=== PATIENT | male | born 1940 | race Caucasian/White ===

== ENCOUNTER 2020-09-07 19:50 | Emergency (ER) | payer MEDICARE, OTHER, SELFPAY | END 2020-09-07 20:25 | disposition left against medical advice (07) | PROVIDERS: Emergency Provider Emergency Medicine; Family Provider Family Medicine; PCP Family Medicine ==

== ENCOUNTER 2020-09-08 12:00 | Emergency (ER) | payer MEDICARE, OTHER, SELFPAY ==
[2020-09-08 12:13] VITALS: BP 103/69; PULSE 72; RESP 18; TEMP 36.9; O2SAT 97
--- NOTE | 2020-09-08 15:21 | PC.NURSE ---
reports that pt is unable to swallow food without choking. states that he chokes up thick fluid and any food that he eats. she is afraid that she will need to do cpr on him when he chokes.
--- NOTE | 2020-09-08 15:51 | ED.NAVMDI ---
HPI - Nausea/Vomiting/Diarrhea General Chief complaint: Nausea/Vomiting/Diarrhea Stated complaint: vomiting/ diarrhea Time Seen by Provider: 09/08/20 15:10 Source: patient Mode of arrival: EMS Limitations: no limitations History of Present Illness HPI Narrative: Patient is a 80-year-old male with history of atrial fibrillation on Coumadin presenting with he it is but vomiting. He said it started while eating lunch it he 3 days ago they can not remember exactly what he was eating. Unclear if it got stuck. However since then every time he eats or drinks something he coughs/vomits up lots of clear spit like fluid. He says it is quite a large amount. He has no abdominal pain. He is not dizzy or lightheaded. He denies any chest pain palpitation shortness of breath. He had is not having any productive cough or fever. No prior history of dysphagia. Related Data Home Medications Medication Instructions Recorded Confirmed multivitamin 1 cap PO DAILY 05/13/18 06/16/20 lisinopril 20 2 tab PO DAILY tab 12/04/19 06/16/20 mg-hydrochlorothiazide 12.5 mg tablet trazodone 50 mg tablet 100 mg PO BEDTIME PRN tab 12/04/19 06/16/20 warfarin 5 mg tablet 5 mg PO 5XW tab 12/04/19 06/16/20 warfarin 6 mg tablet 6 mg PO 2XW tab 12/04/19 06/16/20 Allergies Allergy/AdvReac Type Severity Reaction Status Date / Time No Known Drug Allergies Allergy Unverified 11/13/18 11:12 Review of Systems Review of Systems Narrative: GENERAL: Denies chills, fatigue, malaise, fever, sweats, travel HEENT: Denies sinus pain, ear pain, sore throat, difficulty swallowing, neck pain RESPIRATORY: Denies dyspnea, cough, wheezing, hemoptysis, sputum. CARDIOVASCULAR: Denies chest pain, palpitations, orthopnea, edema GASTROINTESTINAL: See HPI : Denies dysuria, frequency, incontinence, hematuria, urinary retention, flank pain. MUSCULOSKELETAL: Denies weakness, joint pain, or bony pain SKIN: No rash, no erythema, no pruritus NEUROLOGIC: Denies weakness, dizziness, headache, numbness, change in speech, confusion PSYCHIATRIC: No concerning psychosocial issues. 12 point review of systems is negative except for those stated above and HPI Patient History Medical History Atrial fibrillation with RVR Blindness of left eye Complex sleep apnea syndrome (~08/2009) Dry eye syndrome, bilateral Excessive daytime sleepiness (~01/2010) Hypertension Obesity (BMI 30-39.9) Obstructive sleep apnea of adult (~06/2009) Recurrent sinusitis Social History (Updated 05/15/18 @ 18:07 by PO Barrera) marital status: details: christina Appiah, lives in [place] household members: spouse lives independently: No caregiver/support person: Yes (Bijal identifies herself as his caregiver) housing: house education level: college Smoking Status: Former smoker alcohol intake: current substance use type: does not use Smoking Status: Former smoker tobacco type: cigarettes and smokeless tobacco Substance Use Type: does not use Exam Initial Vital Signs Initial Vital Signs: Vital Signs Temperature 98.5 F 09/08/20 12:13 Pulse Rate 72 09/08/20 12:13 Respiratory Rate 18 09/08/20 12:13 Blood Pressure 103/69 09/08/20 12:13 Pulse Oximetry 97 09/08/20 12:13 GENERAL: Alert pleasant 80-year-old male no acute distress HEENT: Head atraumatic,EOMI, pupils reactive, face symmetric, moist mucous membranes CARDIOVASCULAR: Regular rate and rhythm without murmurs, rubs or gallops. RESPIRATORY: Breath sounds equal bilaterally, no wheezes rales or rhonchi. No respiratory distress ABDOMEN: Soft, nontender. Normoactive bowel sounds all 4 quadrants. No guarding or rebound. RECTAL: Hemoccult negative no gross blood : No CVA tenderness EXTREMITIES: Normal range of motion, no clubbing or edema. Neurovascularly intact NEUROLOGICAL: Alert and oriented x4.Normal gait and speech. SKIN: Warm, dry, no laceration, no petechiae, no rashes or lesions. Course Orders Ordered: ED Orders 09/08/20 15:59 XR chest 1V Stat EKG-12 Lead Stat 09/08/20 16:40 Complete Blood Count AUTO DIFF Stat Comprehensive Metabolic Panel Stat Lipase Stat Partial Thromboplastin Time Stat Prothrombin Time INR Stat Troponin & CK Cardiac Panel Stat Discontinued Medications Glucagon (Glucagon,Human Recombinant 1 Mg/Ml Vial) 1 mg IV NOW ONE Stop: 09/08/20 16:00 Last Admin: 09/08/20 16:48 Dose: 1 mg Documented by: YARIEL Sodium Chloride (Normal Saline 0.9%) 1,000 mls @ 150 mls/hr IV CONT ELMA Last Infusion: 09/08/20 19:38 Dose: 0 mls/hr Documented by: Admin: 09/08/20 16:45 Dose: 150 mls/hr Documented by: YARIEL Pantoprazole Sodium (Pantoprazole 40 Mg Vial) 40 mg IV NOW ONE Stop: 09/08/20 16:00 Last Admin: 09/08/20 16:45 Dose: 40 mg Documented by: YARIEL Vital Signs Vital signs: Vital Signs - 8 hr 09/08/20 18:17 Pulse Rate 78 Blood Pressure 135/77 Pulse Oximetry 97 MDM - Nausea/Vomiting/Diarrhea Lab Data Result diagrams: 09/08/20 16:40 09/08/20 16:40 Labs: Lab Results 09/08/20 09/08/20 09/08/20 Range/Units 16:40 16:40 16:40 WBC 9.9 (4.5-11.0) X10^3/uL RBC 3.18 L (4.5-5.9) X10^6/uL Hgb 8.3 L (13.5-17.5) g/dL Hct 25.7 L (41-53) % MCV 80.7 (80-100) fL MCH 26.0 (26-34) PG MCHC 32.2 (30-36) % RDW 17.7 H (11.6-14.8) % Plt Count 345 (150-400) X10^3/uL Neut % (Auto) 63.8 (50-75) % Lymph % (Auto) 24.3 L (25-40) % [place] % (Auto) 9.8 (3-14) % Eos % (Auto) 0.9 L (2-4) % Baso % (Auto) 1.2 (0-2) % Neut # (Auto) 6300 (2465-1586) /uL Lymph # (Auto) 2400 (3399-1598) /uL [place] # (Auto) 1000 H (0-900) /uL Eos # (Auto) 100 (0-450) /uL Baso # (Auto) 100 (0-100) /uL PT 42.5 H (10.1-12.7) SECONDS INR 3.6 H (0.9-1.3) APTT 50 H (26.4-36.2) SECONDS Sodium 134 L (137-145) mmol/L Potassium 4.3 (3.4-5.1) mmol/L Chloride 98 (98-107) mmol/L Carbon Dioxide 27 (22-32) mmol/L BUN 29 H (9-20) mg/dL Creatinine 1.42 H (0.66-1.25) mg/dL Estimated GFR 47.7 L (>60) mL/min BUN/Creatinine Ratio 20.4 (6-22) Glucose 121 H (80-110) mg/dL Calcium 9.3 (8.4-10.2) mg/dL Total Bilirubin 0.3 (0.2-1.3) mg/dL AST 23 (17-59) IU/L ALT 20 (<50) IU/L Alkaline Phosphatase 60 (38-126) U/L Total Creatine Kinase 60 (55-170) U/L CK-MB (CK-2) TNP CK-MB (CK-2) Rel Index TNP Troponin I < 0.012 (0.01-0.034) ng/mL Total Protein 7.1 (6.3-8.2) g/dL Albumin 4.2 (3.5-5.0) g/dL Globulin 2.9 (1.7-4.1) g/dL Albumin/Globulin Ratio 1.4 (1.0-2.8) Lipase 220 (23-300) U/L Imaging Data Chest x-ray: Radiologist's Impression: PROCEDURE: XR CHEST 1V INDICATIONS: feels something is stuck TECHNIQUE: One view of the chest was acquired. COMPARISON: [facility], , CHEST 2 VIEW, 11/11/2013, 9:24. FINDINGS: Surgical changes and devices: None. Lungs and pleura: Lungs are symmetrically aerated and clear. No pleural effusions or pneumothorax. Mediastinum: Mild, stable cardiomegaly. No significant central venous congestion. Bones and chest wall: No suspicious bony lesions. Right AC joint degeneration. Overlying soft tissues appear unremarkable. IMPRESSION: 1. No acute process. 2. Mild, stable cardiomegaly. Dictated by: Judy Calderón M.D. on 09/08/2020 at 17:07 ECG Data Interpretation: Atrial fibrillation rate [address] changes--n o prior to compare MDM Narrative Medical decision making narrative: Patient sounds as though he is having like some dysplasia of the. He currently is able to swallow his own spit and does not seem to be in any acute distress. Hemoglobin is found to be 8.3 with an elevated INR of 3.6. He denies any black or bloody stools. All he is says occasionally is there is some bright red blood but I think it might be a hemorrhoid certainly does not seem to be excessive. His they describe vomiting has clear spit and not coffee grounds. He has appoint with his primary care provider in 5 days, recommend outpatient labs and close monitoring at home. Patient and seem reliable. is worried because he has had a slow decline home, they do have some home health care. Discharge Plan Departure Patient Disposition: Home Clinical Impression: Dysphagia Qualifiers: Dysphagia type: unspecified Qualified Code(s): R13.10 - Dysphagia, unspecified Anemia Qualifiers: Anemia type: unspecified type Qualified Code(s): D64.9 - Anemia, unspecified Instructions: Anemia Activity Restrictions/Additional Instructions: *You have been diagnosed with dysphagia, anemia *What to do: At this time I do recommend that you have a swallowing study to be sure that you can swallow safety and not get pneumonia. Your also found to have a low hemoglobin of 8.3 hematocrit 25.3, an INR of 3.6 Sunday: --have CBC and INR rechecked by her primary care doctor. Please call tomorrow for them to follow labs in for Sunday *Continue to take medications as directed HOLD COUMADIN UNTIL INR IS RECHECKED AND THEN TALK WITH PRIMARY CARE PROVIDER BEFORE RESUMING *Follow up with your primary care provider in 2-3 days *Return to ER if you should have increasing bloody stools black story bright red or vomiting blood, inability to tolerate any liquids. Falling, dizziness, weakness, fever or any new, worsening or concerning symptoms Prescriptions: No Action multivitamin capsule 1 cap PO DAILY RF: 0 warfarin 6 mg tablet 6 mg PO 2XW RF: 0 lisinopril-hydrochlorothiazide 20-12.5 mg tablet 2 tab PO DAILY RF: 0 warfarin 5 mg tablet 5 mg PO 5XW RF: 0 trazodone 50 mg tablet 100 mg PO BEDTIME PRN (Reason: insomnia, depression) RF: 0 Referrals: Morgan Muniz MD [Primary Care Provider] -
--- NOTE | 2020-09-08 15:59 | DI.RAD.S_ITS ---
PROCEDURE: XR CHEST 1V INDICATIONS: feels something is stuck TECHNIQUE: One view of the chest was acquired. COMPARISON: [facility], , CHEST 2 VIEW, 11/11/2013, 9:24. FINDINGS: Surgical changes and devices: None. Lungs and pleura: Lungs are symmetrically aerated and clear. No pleural effusions or pneumothorax. Mediastinum: Mild, stable cardiomegaly. No significant central venous congestion. Bones and chest wall: No suspicious bony lesions. Right AC joint degeneration. Overlying soft tissues appear unremarkable. IMPRESSION: 1. No acute process. 2. Mild, stable cardiomegaly. Dictated by: Judy Calderón M.D. on 09/08/2020 at 17:07 Approved by: Judy Calderón M.D. on 09/08/2020 at 17:09
[2020-09-08] MEDS: SODIUM CHLORIDE 0.9% 1,000 ML 150 ML IV (16:45)
[2020-09-08] MEDS: PANTOPRAZOLE 40 MG VIAL IV (16:45)
[2020-09-08 16:47] LABS: Add Manual Diff / Slide Review NO; Basophils Absolute Auto 100 /uL (0-100); Basophils Percent Auto 1.2 % (0-2); Eosinophils Absolute Auto 100 /uL (0-450); Eosinophils Percent Auto 0.9 % (2-4); Hematocrit 25.7 % (41-53); Hemoglobin 8.3 g/dL (13.5-17.5); Lymphocytes Absolute Auto 2400 /uL (1100-4500); Lymphocytes Percent Auto 24.3 % (25-40); Mean Corpuscular HGB Conc 32.2 % (30-36); Mean Corpuscular Volume 80.7 fL (80-100); Monocytes Absolute Auto 1000 /uL (0-900); Monocytes Percent Auto 9.8 % (3-14); Neutrophils Absolute Auto 6300 /uL (1500-7000); Neutrophils Percent Auto 63.8 % (50-75); Platelet Count 345 X10^3/uL (150-400); Red Blood Cell Count 3.18 X10^6/uL (4.5-5.9); Red Cell Distribution Width 17.7 % (11.6-14.8); White Blood Cell Count 9.9 X10^3/uL (4.5-11.0)
[2020-09-08] MEDS: GLUCAGON,HUMAN RECOMBINANT 1 MG/ML VIAL IV (16:48)
[2020-09-08 16:54] LABS: INR 3.6 (0.9-1.3); Prothrombin Time 42.5 SECONDS (10.1-12.7)
[2020-09-08 16:56] LABS: PTT Partial Thromboplastin Tim 50 SECONDS (26.4-36.2)
[2020-09-08 16:59] LABS: Alanine Aminotransferase 20 IU/L (<50); Albumin 4.2 g/dL (3.5-5.0); Albumin Globulin Ratio 1.4 (1.0-2.8); Alkaline Phosphatase 60 U/L (38-126); Aspartate Aminotransferase 23 IU/L (17-59); BUN Creatinine Ratio 20.4 (6-22); Bilirubin Total 0.3 mg/dL (0.2-1.3); Blood Urea Nitrogen 29 mg/dL (9-20); Calcium 9.3 mg/dL (8.4-10.2); Carbon Dioxide 27 mmol/L (22-32); Chloride 98 mmol/L (98-107); Creatine Kinase 60 U/L (55-170); Estimated Glomerular Filt Rate 47.7 mL/min (>60); Globulin 2.9 g/dL (1.7-4.1); Glucose 121 mg/dL (80-110); HEMOLYSIS < 15 (0-50); Lipase 220 U/L (23-300); Potassium 4.3 mmol/L (3.4-5.1); Sodium 134 mmol/L (137-145); Total Protein 7.1 g/dL (6.3-8.2)
[2020-09-08 17:11] LABS: Troponin I < 0.012 ng/mL (0.01-0.034)
[2020-09-08 18:17] VITALS: BP 135/77; PULSE 78; O2SAT 97
== END 2020-09-08 19:38 | disposition home or self-care (01) ==
PROVIDERS: Emergency Provider Emergency Medicine; Family Provider Family Medicine; PCP Family Medicine
DX: R13.10 Dysphagia, unspecified (principal); D64.9 Anemia, unspecified; R79.89 Other specified abnormal findings of blood chemistry; I48.91 Unspecified atrial fibrillation; Z79.01 Long term (current) use of anticoagulants; Z87.891 Personal history of nicotine dependence
CPT/HCPCS: 36415; 71045; 80053; 82550; 83690; 84484; 85025; 85610; 85730; 93005; 93010; 96361; 96374; 96375; 99284; C9113; J1610